=== PATIENT | male | born 1975 | race Hispanic/Latino ===

== ENCOUNTER 2018-07-01 12:04 | Emergency (ER) | payer SELFPAY ==
--- NOTE | 2018-07-01 15:56 | RAD ---
TWO VIEWS CHEST: HISTORY: Cough. COMPARISON: None. FINDINGS: Normal cardiac silhouette. Pulmonary vessels and hilum are normal. Lungs and pleural spaces are peace ar. No pneumothorax or osseous abnormalities. IMPRESSION: No acute cardiopulmonary process. POS: [facility]
== END 2018-07-01 14:10 | disposition home or self-care (01) ==
LOC: ERS 12:04
DX: J20.9 Acute bronchitis, unspecified (principal); I10 Essential (primary) hypertension
CPT/HCPCS: 71046; 94760; J7620